=== PATIENT | female | born 1965 | race African-American/Black ===

== ENCOUNTER 2017-04-27 13:27 | Emergency (ER) | payer OTHER ==
[~2017-04-27] VITALS: Ht 152.4 cm; Wt 77.1 kg
[~2017-04-27 13:27] MED LIST: ADULT LOW DOSE81 MG; ALDACTONE25 MG; ALTACE10 MG PO; ALTACE5 M1; ALTACE5 M1 PO; AMLODIPINE BESYL5 MG PO; AMOXICILLIN875 MG PO; AUGMENTIN 875875 M1 PO; CARVEDILOL3.125 MG PO; CATAPRES0.2 MG; DOXYCYCLINE 10100 MG PO; FLEXERIL PO; FLONASE 0.05%50 MCG NASAL; HYDROCHLOROTH12.5 MG PO; HYDROCODONE-AP1 EAC6 PO; LABETALOL HCL300 MG PO; LASIX 20 MG TAB20 MG PO; LORTAB 5 MG/5001 TA1 PO; MEDROLDOSEPACK PO; MYFORTIC; NORCO 5-325 TA1 EACH PO; NORVASC10 MG PO; PHENERGAN 25 MG25 M1 PO; PROGRAF1 MG PO; SENSIPAR60 MG PO; TAMIFLU45 MG PO; TESSALON200 MG PO; TIZANIDINE HCL4 MG PO; TRANDATE 200 M200 M1 GT; TRIAMCINOLONE A15 G1 TP; VICODIN; ZOCOR 10 MG TAB10 MG PO; [UNRECOGNIZED DRUG - OTHER] PO
[2017-04-27] MEDS ORDERED: IBUPROFEN 600600 M1 PO (15:15)
[2017-04-27 15:35] VITALS: BP 176/98
== END 2017-04-27 15:31 | disposition home or self-care (01) ==
LOC: ER 13:27
DX: M25.561 Pain in right knee (principal); M25.572 Pain in left ankle and joints of left foot; M25.571 Pain in right ankle and joints of right foot; I10 Essential (primary) hypertension; G89.29 Other chronic pain; Z90.710 Acquired absence of both cervix and uterus; Z94.0 Kidney transplant status; Z88.8 Allergy status to other drugs, medicaments and biological substances; W01.0XXA Fall on same level from slipping, tripping and stumbling without subsequent striking against object, initial encounter; Y93.01 Activity, walking, marching and hiking; Y92.89 Other specified places as the place of occurrence of the external cause; Y99.8 Other external cause status

== ENCOUNTER 2017-06-27 10:55 | Emergency (ER) | payer OTHER ==
[~2017-06-27] VITALS: Ht 152.4 cm; Wt 74.8 kg
[~2017-06-27 10:55] MED LIST changes: +IBUPROFEN 600600 M1 PO
[2017-06-27] MEDS ORDERED: AMOXICILLIN 50500 M1 PO (12:36)
[2017-06-27] MEDS ORDERED: HYDROCODONE-AP1 EAC6 PO (12:36)
[2017-06-27 12:58] VITALS: BP 196/110
== END 2017-06-27 13:12 | disposition home or self-care (01) ==
LOC: ER 10:55
DX: J20.9 Acute bronchitis, unspecified (principal); I10 Essential (primary) hypertension; G89.29 Other chronic pain; M54.9 Dorsalgia, unspecified; Z92.25 Personal history of immunosuppression therapy; Z94.0 Kidney transplant status; Z87.01 Personal history of pneumonia (recurrent); Z90.710 Acquired absence of both cervix and uterus; Z88.8 Allergy status to other drugs, medicaments and biological substances; Z77.22 Contact with and (suspected) exposure to environmental tobacco smoke (acute) (chronic)

== ENCOUNTER 2017-08-04 17:50 | Inpatient (IN) | payer OTHER ==
[~2017-08-04] VITALS: Ht 152.4 cm; Wt 74.2 kg
--- NOTE | ~2017-08-04 | HC ---
[facility] [place] [address] CONSULTATION Name: LAURA BILLINGS Room #: 355-P ADM IN M.R.#: [id number] Admission: 08/04/17 Attend Phys: Jim Bradley DO Discharge: Date of : 61 Report #: [id number] THIS REPORT FOR: //name// CC: Jim Mckeon REASON FOR CONSULTATION: I was asked to evaluate concerning low-grade fever in the setting of renal transplantation. HISTORY OF PRESENT ILLNESS: The patient was a 51-year-old with end-stage renal disease, underwent kidney transplant in 2009. She has had no rejection episodes. She remains on mycophenolate and tacrolimus without recent change. Last week was exposed to her grandchild with upper respiratory tract infection. She then developed low-grade fever, chills, myalgias, arthralgias, rhinorrhea and cough. No headache. One episode of nausea. No diarrhea. No dysuria. No rash. She has had no travel outside the [place]. She has had influenza vaccination. ALLERGIES: CARDIZEM, LOPRESSOR, LISINOPRIL, PROCARDIA. MEDICATIONS: As noted on OCT, now on Tamiflu. PAST MEDICAL HISTORY: End-stage renal disease, hypertension, diabetes, left arm fistula, hysterectomy. FAMILY HISTORY: Noncontributory. SOCIAL HISTORY: Nonsmoker, no significant alcohol intake. REVIEW OF SYSTEMS: Noted above. PHYSICAL EXAMINATION: VITAL SIGNS: Afebrile and hemodynamically stable. Maximum temperature was 38 degrees last evening. HEENT: Sinus congestion, otherwise unremarkable. NECK: Supple, no adenopathy. SKIN: Unremarkable. LUNGS: Clear. HEART: Regular, without murmur. ABDOMEN: Soft, nontender, no hepatosplenomegaly or mass. EXTREMITIES: Unremarkable. NEUROLOGIC: Nonfocal. LABORATORY DATA: Sodium 134, potassium 3.2, bicarbonate 26, creatinine 1.7, alkaline phosphatase 146, ALT 14. Lactate 1.2, hemoglobin 13.9, platelet count 218,000, white count 7.8, unremarkable differential. Influenza antigen was negative. Viral respiratory panel is pending. Urinalysis, rare wbc's, moderate [facility] [address] [place] [address] CONSULTATION Name: LAURA BILLINGS Room #: 355-P ADM IN M.R.#: [id number] Admission: 08/04/17 Attend Phys: Jim Bradley DO Discharge: Date of : 61 Report #: [id number] bacteria. Urine culture, few normal conchis. Blood cultures are negative today. Chest x-ray was clear. IMPRESSION: A 51-year-old renal transplant patient, who is immunosuppressed presents with suspected viral respiratory tract infection. Respiratory syncytial virus versus influenza would be most likely. I suspect she also has a component of sinusitis. She is coughing up some sputum, postnasal drip. I would recommend continuing Tamiflu. We will add Omnicef and decongestants. We will see how she does over the next 24 hours. If remained stable, we will look at continuing her treatment at home. <ELECTRONICALLY SIGNED> By: Kip Jackson MD 08/07/17 1500 [id number] 1717 Kip Jackson MD /nt
--- NOTE | ~2017-08-04 | EKG ---
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 : 1965 Requested By: Iveth Guillaume Order Number: [id number] MD: Neville Mai Measurements Intervals [place] Rate: 121 P: 59 VT: 160 QRS: -50 QRSD: 92 T: 98 QT: 327 QTc: 464 Interpretive Statements Sinus tachycardia Left atrial enlargement Left ventricular hypertrophy Poor R wave progression Left anterior hemiblock Compared to ECG 01/21/2017 19:07:16 Myocardial infarct finding now present Heart rate has increased Electronically Signed On 08-05-2017 14:26:30 HAND TURNER by Neville Mai [email or web address] <ELECTRONICALLY SIGNED> By: Neville Mai MD, [facility] 08/05/17 1426 1823 182 Neville Mai MD, [facility] /EPI
--- NOTE | ~2017-08-04 | HC ---
[facility] [place] [address] CONSULTATION Name: LAURA BILLINGS Room #: 355-P [facility] IN M.R.#: [id number] Admission: 08/04/17 Attend Phys: Jim Bradley DO Discharge: 08/08/17 Date of : 61 Report #: [id number] THIS REPORT FOR: //name// CC: Jim Mckeon REASON FOR CONSULTATION: Kidney transplantation. REASON FOR PRESENTATION: Fever and chills. HISTORY OF PRESENT ILLNESS: This is a 51-year-old who is well known to me. She has end-stage renal disease, status post kidney transplantation back in 2009. She is maintained on immunosuppressive medications. She started to have some fever and chills, generalized body aches and rhinorrhea associated with cough before her presentation. She had some nausea and vomiting. She presented for further evaluation and management. No reported contact with sick people. No reported urinary symptoms in the form of frequency, urgency, or hesitancy. She had some blood-tinged sputum. On presentation, she was found to have an elevated blood pressure and was admitted for further evaluation and management because of her immunosuppressive status. PAST MEDICAL HISTORY: 1. End-stage renal disease, status post kidney transplantation. 2. Hypertension. 3. Borderline diabetes mellitus. 4. Chronic immunosuppressive status. PAST SURGICAL HISTORY: 1. Status post kidney transplant. 2. Left arm fistula. 3. Hysterectomy. FAMILY HISTORY: Her grandmother had heart disease. Both parents are alive and healthy. SOCIAL HISTORY: Secondhand smoker. No drug or alcohol abuse. MEDICATIONS: 1. Ramipril. 2. Mycophenolate. 3. Tacrolimus. 4. Carvedilol. 5. Hydrochlorothiazide. 6. Aldactone. REVIEW OF SYSTEMS: GENERAL: Significant for fever and chills. [facility] [address] [place] [address] CONSULTATION Name: LAURA BILLINGS Room #: 355-P [facility] IN M.R.#: [id number] Admission: 08/04/17 Attend Phys: Jim Bradley DO Discharge: 08/08/17 Date of : 61 Report #: [id number] CARDIOVASCULAR: As per the history of present illness. PULMONARY: As per the history of present illness. GASTROINTESTINAL: As per the history of present illness. GENITOURINARY: No urinary frequency or urgency. SKIN: No rash or ulcerations. NEUROLOGIC: weakness. PHYSICAL EXAMINATION: GENERAL: She is alert and oriented. VITAL SIGNS: Blood pressure was 121/80. She had a significantly elevated blood pressure in the last 24 hours; however, this has rectified. HEAD AND NECK: No jugular venous distention, no bruit, no thyromegaly. CHEST: Clear to auscultation bilaterally. CARDIOVASCULAR: Regular, with no rub detected. ABDOMEN: Soft, nontender with no hepatosplenomegaly. LOWER EXTREMITIES: No edema with intact peripheral pulses. LABORATORY VALUES: Reviewed. She had no leukocytosis. Chemistry from today revealed hypokalemia. Creatinine is slightly up to 1.7. UA with +2 protein, trace blood and trace leukocyte esterase. Cultures and influenza screen all negative. IMAGING: Chest x-ray reviewed, no infiltrates. ASSESSMENT, IMPRESSION, AND PLAN: 1. Status post kidney transplantation. 2. Febrile illness. 3. Hypertension. 4. Borderline diabetes mellitus. 5. From the renal perspective, we will continue with the current immunosuppressive regimen including Prograf and mycophenolate. 6. Blood pressure had been elevated; however, this has rectified with resumption of her home medications. 7. Consult ID. This seems to be all a common cold related symptoms and if it is okay with ID, we could probably discharge home in the next 24 hours and she has to follow up with her shower enclosure installer. <ELECTRONICALLY SIGNED> By: Dejuan Turcios MD 08/10/17 0953 1135 [id number] Dejuan Turcios MD /nt
[~2017-08-04 17:50] MED LIST changes: +AMOXICILLIN 50500 M1 PO; -MYFORTIC; +MYFORTIC180 MG PO
[2017-08-04 17:53] VITALS: BP 221/136
[2017-08-04 18:26] LABS: ABSOLUTE NEUTROPHILS 5.7 thou/uL (1.4-8.2); BASOPHILS 0.4 % (0.0-2.0); EOSINOPHILS 2.5 % (0.0-3.0); HEMATOCRIT 40.5 % (37.0-47.0); HEMOGLOBIN 13.9 gm/dL (12.0-15.0); LYMPHOCYTES 14.2 % (24.0-44.0); MCH 27.8 pg (26.0-34.0); MCHC 34.4 g/dL (28.0-37.0); MCV 80.7 fL (80.0-100.0); MONOCYTES 9.2 % (1.0-8.0); PLATELET COUNT 218 thou/uL (150-400); POLYS 73.7 % (36.0-66.0); RBC 5.03 mil/uL (4.20-5.00); RDW 13.9 % (10.5-14.5); WBC 7.8 thou/uL (4.0-11.0)
[2017-08-04 18:48] LABS: CALCIUM 9.3 mg/dL (8.5-10.1); CREATININE 1.6 mg/dL (0.6-1.0); POTASSIUM 4.1 mmol/L (3.5-5.1)
[2017-08-04 18:52] LABS: ALBUMIN 3.8 g/dL (3.4-5.0); TOTAL BILIRUBIN 0.3 mg/dL (<0.1-1.0); TOTAL PROTEIN 8.2 g/dL (6.4-8.2)
[2017-08-04 19:45] LABS: URINE BILIRUBIN NEGATIVE (Negative); URINE BLOOD TRACE (Negative); URINE CLARITY CLEAR; URINE COLOR YELLOW; URINE GLUCOSE-RANDOM* NEGATIVE (Negative); URINE KETONES NEGATIVE (Negative); URINE LEUKOCYTES TRACE (Negative); URINE NITRITE NEGATIVE (Negative); URINE PROTEIN (DIPSTICK) 2+ (Negative); URINE UROBILINOGEN 0.2 E.U./dl (0.2-1.0)
[2017-08-04 19:46] VITALS: BP 202/98
[2017-08-04 19:56] LABS: CASTS None Seen /LPF (None Seen); CRYSTALS None Seen /LPF (None Seen); SQUAMOUS 4-10 Moderate /LPF (0-3); URINE RBC 0-2 Rare /HPF (0-2); URINE WBC 0-5 Rare /HPF (0-5)
[2017-08-04 21:26] VITALS: BP 144/77
[2017-08-04 21:30] VITALS: BP 135/78
[2017-08-04] MEDS ORDERED: CARVEDILOL12.5 MG PO (22:25)
[2017-08-05] VITALS (7 sets, daily range): BP systolic 133–220; BP diastolic 78–110
[2017-08-05 04:35] LABS: CALCIUM 8.2 mg/dL (8.5-10.1); CREATININE 1.5 mg/dL (0.6-1.0)
[2017-08-06 00:20] VITALS: BP 142/88
[2017-08-06 04:00] VITALS: BP 131/94
[2017-08-06 07:08] LABS: CALCIUM 8.9 mg/dL (8.5-10.1); CREATININE 1.7 mg/dL (0.6-1.0); PHOSPHORUS 4.9 mg/dL (2.5-4.9); POTASSIUM 3.2 mmol/L (3.5-5.1)
[2017-08-06 08:36] VITALS: BP 121/80
[2017-08-06 13:00] VITALS: BP 107/66
[2017-08-06 16:19] VITALS: BP 122/68
[2017-08-06 19:23] VITALS: BP 105/69
[2017-08-07 04:00] VITALS: BP 138/92
[2017-08-07 06:51] LABS: ABSOLUTE NEUTROPHILS 4.3 thou/uL (1.4-8.2); BASOPHILS 0.2 % (0.0-2.0); EOSINOPHILS 0.2 % (0.0-3.0); HEMATOCRIT 39.4 % (37.0-47.0); HEMOGLOBIN 13.5 gm/dL (12.0-15.0); LYMPHOCYTES 23.7 % (24.0-44.0); MCH 27.6 pg (26.0-34.0); MCHC 34.2 g/dL (28.0-37.0); MCV 80.7 fL (80.0-100.0); MONOCYTES 11.1 % (1.0-8.0); PLATELET COUNT 182 thou/uL (150-400); POLYS 64.8 % (36.0-66.0); RBC 4.88 mil/uL (4.20-5.00); RDW 13.8 % (10.5-14.5); WBC 6.6 thou/uL (4.0-11.0)
[2017-08-07 07:09] LABS: ALBUMIN 2.8 g/dL (3.4-5.0); CALCIUM 8.5 mg/dL (8.5-10.1); CREATININE 1.9 mg/dL (0.6-1.0); PHOSPHORUS 3.3 mg/dL (2.5-4.9); POTASSIUM 3.5 mmol/L (3.5-5.1); TOTAL BILIRUBIN 0.4 mg/dL (<0.1-1.0); TOTAL PROTEIN 7.1 g/dL (6.4-8.2)
[2017-08-07 08:04] VITALS: BP 166/100
[2017-08-07 11:06] VITALS: BP 131/91
[2017-08-07 15:52] VITALS: BP 131/94
[2017-08-07 19:48] VITALS: BP 134/84
[2017-08-07 23:06] LABS: ADENOVIRUS Negative (Negative); INFLUENZA B Negative (Negative); METAPNEUMOVIRUS Negative (Negative); PARAINFLUENZA 1 Negative (Negative); PARAINFLUENZA 2 Negative (Negative); PARAINFLUENZA 3 Negative (Negative); RHINOVIRUS Negative (Negative); RSV A Negative (Negative); RSV B Negative (Negative)
[2017-08-08 04:05] VITALS: BP 149/98
[2017-08-08 04:38] LABS: HEMATOCRIT 40.3 % (37.0-47.0); HEMOGLOBIN 13.6 gm/dL (12.0-15.0); MCH 27.3 pg (26.0-34.0); MCHC 33.6 g/dL (28.0-37.0); MCV 81.1 fL (80.0-100.0); PLATELET COUNT 191 thou/uL (150-400); RBC 4.97 mil/uL (4.20-5.00); RDW 13.7 % (10.5-14.5); WBC 4.3 thou/uL (4.0-11.0)
[2017-08-08 04:47] LABS: ALBUMIN 2.8 g/dL (3.4-5.0); CALCIUM 8.9 mg/dL (8.5-10.1); CREATININE 1.6 mg/dL (0.6-1.0); POTASSIUM 3.4 mmol/L (3.5-5.1); TOTAL BILIRUBIN 0.4 mg/dL (<0.1-1.0); TOTAL PROTEIN 7.2 g/dL (6.4-8.2)
[2017-08-08 06:38] LABS: ABSOLUTE NEUTROPHILS 1.3 thou/uL (1.4-8.2); ATYPICAL LYMPHS 4 %
[2017-08-08 09:00] VITALS: BP 153/97
[2017-08-08] MEDS ORDERED: CEFDINIR300 MG PO (10:19)
[2017-08-08 10:24] VITALS: BP 149/98
[2017-08-08 22:11] LABS: INFLUENZA A Negative (Negative)
[2018-04-15] MEDS ORDERED: VICODIN 5-3001 EACH PO (08:42)
[2018-04-15] MEDS ORDERED: PERCOCET 5-3251 EACH PO (10:17)
== END 2017-08-08 12:37 | disposition home or self-care (01) | DRG 871 ==
LOC: ER 17:50 → 3W 19:33 → EROBS 19:33 → 3W 21:27 → ENTRNSPT 08-08 12:30 → EDTRNSPTSTS 08-08 12:31 → 3W 08-08 12:37
PROVIDERS: Hospitalist; Nurse Practitioner Acute Care; Nurse Practitioner Family
DX: A41.9 Sepsis, unspecified organism (principal); N18.6 End stage renal disease; E43 Unspecified severe protein-calorie malnutrition; Z94.0 Kidney transplant status; I16.9 Hypertensive crisis, unspecified; I12.0 Hypertensive chronic kidney disease with stage 5 chronic kidney disease or end stage renal disease; B34.9 Viral infection, unspecified; R65.10 Systemic inflammatory response syndrome (SIRS) of non-infectious origin without acute organ dysfunction; G89.29 Other chronic pain; M54.9 Dorsalgia, unspecified; J06.9 Acute upper respiratory infection, unspecified; E11.22 Type 2 diabetes mellitus with diabetic chronic kidney disease; G47.33 Obstructive sleep apnea (adult) (pediatric); Z77.22 Contact with and (suspected) exposure to environmental tobacco smoke (acute) (chronic); I16.0 Hypertensive urgency; R04.0 Epistaxis; Z79.899 Other long term (current) drug therapy; Z90.710 Acquired absence of both cervix and uterus; Z88.8 Allergy status to other drugs, medicaments and biological substances; Z82.49 Family history of ischemic heart disease and other diseases of the circulatory system
CPT/HCPCS: 10879

== ENCOUNTER 2019-02-07 23:48 | Emergency (ER) | payer OTHER ==
[~2019-02-07] VITALS: Ht 152.4 cm; Wt 73.9 kg
[~2019-02-07 23:48] MED LIST changes: +CARVEDILOL12.5 MG PO; +CEFDINIR300 MG PO; +PERCOCET 5-3251 EACH PO; +VICODIN 5-3001 EACH PO
[2019-02-07 23:52] VITALS: BP 120/73
[2019-02-07] MEDS ORDERED: HYDRALAZINE 2525 MG PO (23:56)
[2019-02-08] MEDS ORDERED: TESSALON PERLE100 MG PO (00:39)
[2019-02-08] MEDS ORDERED: PROAIR HFA8.5 GM INH (00:39)
[2019-02-08 01:09] VITALS: BP 106/76
--- NOTE | 2019-02-09 13:40 | EKG ---
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 : 1965 Requested By: Jg Choudhury Order Number: [id number] MD: Neville Mai Measurements Intervals [place] Rate: 66 P: -4 OR: 169 QRS: -42 QRSD: 100 T: 122 QT: 454 QTc: 476 Interpretive Statements Sinus rhythm Left anterior fascicular block LVH with secondary repolarization abnormality Poor R wave progression Compared to ECG 08/04/2017 18:23:45 Sinus tachycardia no longer present Electronically Signed On 02-09-2019 13:40:07 CDT by Neville Mai [email or web address] ��������������������������������������������� <ELECTRONICALLY SIGNED> ���������������������������������������� By: Neville Mai MD, [facility] ��������������������������������������������� 02/09/19 1340 0047 0047 Neville Mai MD, [facility] /EPI
== END 2019-02-08 01:10 | disposition home or self-care (01) ==
LOC: ER 23:48 → EROBS 02-08 00:12
DX: R05 Cough (principal); I10 Essential (primary) hypertension; M54.9 Dorsalgia, unspecified; G47.33 Obstructive sleep apnea (adult) (pediatric); G89.29 Other chronic pain; Z77.22 Contact with and (suspected) exposure to environmental tobacco smoke (acute) (chronic); Z90.710 Acquired absence of both cervix and uterus; Z88.8 Allergy status to other drugs, medicaments and biological substances

== ENCOUNTER 2019-12-14 16:52 | Emergency (ER) | payer OTHER ==
[~2019-12-14] VITALS: Ht 152.4 cm; Wt 74.4 kg
[~2019-12-14 16:52] MED LIST changes: +HYDRALAZINE 2525 MG PO; +PROAIR HFA8.5 GM INH; +TESSALON PERLE100 MG PO
[2019-12-14] MEDS ORDERED: TACROLIMUS1 MG PO (18:30)
[2019-12-14] MEDS ORDERED: MYCOPHENOLIC A360 MG PO (18:30)
[2019-12-14] MEDS ORDERED: HYDRALAZINE 5050 MG PO (18:30)
[2019-12-14] MEDS ORDERED: ALLOPURINOL 10100 M1 PO (18:31)
[2019-12-14 19:25] VITALS: BP 232/142
== END 2019-12-14 19:28 | disposition home or self-care (01) ==
LOC: ER 16:52
DX: R07.89 Other chest pain (principal); M54.9 Dorsalgia, unspecified; I10 Essential (primary) hypertension; G89.29 Other chronic pain; Z90.710 Acquired absence of both cervix and uterus; Z79.899 Other long term (current) drug therapy; Z88.8 Allergy status to other drugs, medicaments and biological substances; Z77.22 Contact with and (suspected) exposure to environmental tobacco smoke (acute) (chronic); Z94.0 Kidney transplant status; X50.0XXA Overexertion from strenuous movement or load, initial encounter; Y93.89 Activity, other specified; Y92.89 Other specified places as the place of occurrence of the external cause; Y99.8 Other external cause status

== ENCOUNTER 2021-01-19 21:02 | Emergency (ER) | payer OTHER ==
[~2021-01-19] VITALS: Ht 152.4 cm; Wt 72.6 kg
[~2021-01-19 21:02] MED LIST changes: +ALLOPURINOL 10100 M1 PO; +HYDRALAZINE 5050 MG PO; +MYCOPHENOLIC A360 MG PO; +TACROLIMUS1 MG PO
[2021-01-19] MEDS ORDERED: DIFLUCAN150 MG PO (21:48)
[2021-01-19] MEDS ORDERED: PENICILLIN VK500 M1 PO (21:48)
[2021-01-19 22:05] VITALS: BP 159/92
== END 2021-01-19 22:05 | disposition home or self-care (01) ==
LOC: ER 21:02
DX: J02.9 Acute pharyngitis, unspecified (principal); R09.81 Nasal congestion; Z88.8 Allergy status to other drugs, medicaments and biological substances; Z79.899 Other long term (current) drug therapy; Z90.710 Acquired absence of both cervix and uterus; Z94.0 Kidney transplant status

== ENCOUNTER 2021-08-29 08:37 | Emergency (ER) | payer OTHER ==
[~2021-08-29] VITALS: Ht 152.4 cm; Wt 74.8 kg
[~2021-08-29 08:37] MED LIST changes: +DIFLUCAN150 MG PO; +PENICILLIN VK500 M1 PO
[2021-08-29 08:48] VITALS: BP 152/104
== END 2021-08-29 10:18 | disposition home or self-care (01) ==
LOC: ER 08:37
DX: S92.424A Nondisplaced fracture of distal phalanx of right great toe, initial encounter for closed fracture (principal); I10 Essential (primary) hypertension; Z94.0 Kidney transplant status; Z90.710 Acquired absence of both cervix and uterus; Z79.51 Long term (current) use of inhaled steroids; Z79.891 Long term (current) use of opiate analgesic; Z79.899 Other long term (current) drug therapy; Z88.8 Allergy status to other drugs, medicaments and biological substances; Z88.6 Allergy status to analgesic agent; Z77.22 Contact with and (suspected) exposure to environmental tobacco smoke (acute) (chronic); W18.40XA Slipping, tripping and stumbling without falling, unspecified, initial encounter; Y93.89 Activity, other specified; Y92.89 Other specified places as the place of occurrence of the external cause; Y99.8 Other external cause status